=== PATIENT | male | born 1970 | race Two or more races ===

== ENCOUNTER 2023-10-21 13:03 | Inpatient (IN) | payer MEDICAID, OTHER ==
[~2023-10-21] VITALS: Ht 175.3 cm; Wt 77.5 kg
[2023-10-21 13:59] LABS: Basophils # (auto) 0.1 10 ^3/uL (0-0.2); Basophils % (auto) 0.9 % (0.0-2.0); Eosinophils # (auto) 0.1 10 ^3/uL (0-0.8); Eosinophils % (auto) 1.8 % (0.0-7.0); Hematocrit 46.6 % (41.0-53.0); Hemoglobin 16.2 g/dL (13.5-17.5); Lymphocytes # (auto) 1.4 10 ^3/uL (0.4-5.4); Lymphocytes % (auto) 25.9 % (10.0-50.0); Mean Corpuscular Hemoglobin 30.4 pg (28.0-32.0); Mean Corpuscular Hgb Conc. 34.9 g/dL (32.0-36.0); Mean Corpuscular Volume 87.2 fL (80.0-100.0); Monocytes # (auto) 0.5 10 ^3/uL (0-1.3); Monocytes % (auto) 8.6 % (0.0-12.0); Neutrophils # (auto) 3.5 10 ^3/uL (1.6-8.6); Neutrophils % (auto) 62.8 % (37.0-80.0); Nucleated Red Blood Cells % 0.1 %; Platelet Count (auto) 294 10^3/uL (140-450); Red Blood Cells 5.34 10^6/uL (4.5-5.90); Red Cell Distribution Width 13.6 % (11.8-14.3); White Blood Cell 5.5 10^3/uL (4.4-10.8)
[2023-10-21 14:00] LABS: Urine Bacteria FEW /hpf (None Seen); Urine Blood Negative /uL (Negative); Urine Clarity Clear (Clear); Urine Color Yellow (Yellow); Urine Mucus FEW (None Seen); Urine Protein, UAD TRACE (Negative); Urine Specific Gravity 1.022 (1.001-1.035); Urine Urobilinogen Normal (Negative); Urine WBC <1 /hpf (0 - 3); Urine pH 7.5 (5.0-9.0)
[2023-10-21 14:15] LABS: Alanine Aminotransferase 35 U/L (7-40); Albumin 4.9 g/dL (3.2-4.8); Alkaline Phosphatase 76 U/L (46-116); Anion Gap 6 (5-15); Aspartate Aminotransferase 34 U/L (13-40); BUN/Creatinine Ratio 9.4 (10.0-20.0); Blood Urea Nitrogen 9 mg/dL (9-23); Calcium 9.7 mg/dL (8.7-10.4); Carbon Dioxide 30 mmol/L (20-30); Chloride 101 mmol/L (98-107); Glucose 110 mg/dL (74-106); Potassium 3.8 mmol/L (3.5-5.1); Sodium 137 mmol/L (136-145); Total Protein 7.8 g/dL (5.7-8.2)
[2023-10-21] MEDS: SODIUM CHLORIDE 0.9% 1,000 ML IV ONE (16:49)
[2023-10-21 19:30] VITALS: PULSE 62; RESP 18; O2SAT 100
[2023-10-21 20:23] LABS: LDL Cholesterol 190 mg/dL (< 100); Triglycerides 87 mg/dL (< 150)
[2023-10-21 20:25] LABS: Cholesterol 242 mg/dL (< 200); HDL Cholesterol 41 mg/dL (40-59)
[2023-10-21 21:00] VITALS: BP 151/73; PULSE 56; RESP 16; TEMP 98.1; O2SAT 99
[2023-10-21] MEDS ORDERED: ACETAMINOPHEN 325 MG TAB PO PRN (21:15)
[2023-10-21] MEDS: ONDANSETRON HCL 4 MG/2 ML VIAL IV PRN (21:57)
[2023-10-21] MEDS: MORPHINE SULFATE INJ 2 MG/ml SYRG IV ONE (21:58)
[2023-10-21] MEDS: PANTOPRAZOLE 40 MG TAB PO SCH (22:00)
[2023-10-21] MEDS: metroNIDAZOLE 500 MG TAB PO SCH (22:08)
[2023-10-21] MEDS: AMOXICILLIN TRIHYDRATE 250 MG CAP PO SCH (22:08)
[2023-10-21] MEDS: LACTATED RINGER'S 1,000 ML IV SCH (22:38)
[2023-10-21 23:20] VITALS: BP 151/73; PULSE 59; RESP 17; RESP 18; TEMP 98.1; TEMP 98.5; O2SAT 98; O2SAT 99
[2023-10-21 23:30] VITALS: BP 144/70
[2023-10-22] VITALS (7 sets, daily range): BP systolic 115–128; BP diastolic 70–80; PULSE 57–79; RESP 15–18; TEMP 97.5–99.4; O2SAT 96–99
[2023-10-22] MEDS: MORPHINE SULFATE INJ 2 MG/ml SYRG IV PRN (05:33)
[2023-10-22 06:46] LABS: Alanine Aminotransferase 30 U/L (7-40); Albumin 4.3 g/dL (3.2-4.8); Alkaline Phosphatase 65 U/L (46-116); Anion Gap 5 (5-15); Aspartate Aminotransferase 30 U/L (13-40); BUN/Creatinine Ratio 10.6 (10.0-20.0); Blood Urea Nitrogen 9 mg/dL (9-23); Calcium 9.1 mg/dL (8.7-10.4); Carbon Dioxide 29 mmol/L (20-30); Chloride 104 mmol/L (98-107); Glucose 76 mg/dL (74-106); Potassium 3.7 mmol/L (3.5-5.1); Sodium 138 mmol/L (136-145)
[2023-10-22 06:47] LABS: Bilirubin, Total 1.1 mg/dL (0.2-1.0); Total Protein 6.8 g/dL (5.7-8.2)
[2023-10-22] MEDS: ENOXAPARIN SOD 40 MG/0.4 ML SYRINGE SC SCH (09:27)
[2023-10-22] MEDS: HYDROcodone-ACET 5/325MG TAB PO PRN (13:42)
[2023-10-23] VITALS (8 sets, daily range): BP systolic 116–130; BP diastolic 68–85; PULSE 57–110; RESP 15–19; TEMP 98–98.9; O2SAT 97–100
[2023-10-23] MEDS ORDERED: NALOXONE HCL 0.4 MG/ML VIAL ONE (09:15)
[2023-10-23] MEDS ORDERED: SODIUM CHLORIDE LOCK 10 ML ONE (09:15)
[2023-10-23] MEDS ORDERED: FLUMAZENIL 0.1 MG/ML INJ 10ML MDV IV ONE (09:15)
[2023-10-23] MEDS ORDERED: LIDOCAINE VISCOUS 2% 15ML UD ONE (09:16)
[2023-10-23] MEDS ORDERED: diphenhdrAMINE HCL 50 MG/1 ML VL ONE (09:16)
[2023-10-23] MEDS ORDERED: MIDAZOLAM HCL 5 MG/ML-1ML VIAL ONE (09:16)
[2023-10-23] MEDS ORDERED: fentaNYL CITRATE 100 MCG/2 ML VL ONE (09:17)
[2023-10-23] MEDS ORDERED: MIDAZOLAM HCL 2MG/2ML 2ml VIAL (1mg/ml) ONE (17:28)
[2023-10-23] MEDS ORDERED: ONDANSETRON HCL 4 MG/2 ML VIAL ONE (17:38)
[2023-10-23] MEDS ORDERED: PROPOFOL 10 MG/ML 20 ML IV ONE (17:38)
[2023-10-23] MEDS ORDERED: ONDANSETRON HCL 4 MG/2 ML VIAL IV ONE (18:00)
[2023-10-23] MEDS: SUCRALFATE 1 GM/10 ML ORAL SUSP GT SCH (22:11)
[2023-10-24 01:00] VITALS: BP_SYST 103; BP_SYST 122; BP_DIAS 63; BP_DIAS 77; PULSE 64; PULSE 77; RESP 18; RESP 20; TEMP 97.9; TEMP 98.7; O2SAT 97; O2SAT 98
[2023-10-24 05:00] VITALS: BP 103/66; PULSE 70; RESP 18; TEMP 98; O2SAT 95
[2023-10-24 08:35] VITALS: BP 110/71; PULSE 66; RESP 18; TEMP 98.4; O2SAT 100
[2023-10-24 13:00] VITALS: BP 114/75; PULSE 73; RESP 18; TEMP 98.2; O2SAT 96
[2023-10-24] MEDS ORDERED: SUCR1TAB31 PO (13:36)
[2023-10-24] MEDS ORDERED: PANT40T PO (13:36)
[2023-10-24 15:53] VITALS: TEMP 36.8
== END 2023-10-24 16:15 | disposition home or self-care (01) | DRG 282 ==
LOC: ER 13:03 → OVERFLOW 21:39 → WEST WING 21:39
PROVIDERS: ADMIT Nurse Practitioner; ATTEND Internal Medicine
PROC: 0DB68ZX Excision of Stomach, Via Natural or Artificial Opening Endoscopic, Diagnostic (ICD-10-PCS; 2023-10-23)
PROC: 0DB98ZX Excision of Duodenum, Via Natural or Artificial Opening Endoscopic, Diagnostic (ICD-10-PCS; principal; 2023-10-23 17:20)
DX: K85.90 Acute pancreatitis without necrosis or infection, unspecified (principal); K27.4 Chronic or unspecified peptic ulcer, site unspecified, with hemorrhage; K57.31 Diverticulosis of large intestine without perforation or abscess with bleeding; K29.71 Gastritis, unspecified, with bleeding; B96.81 Helicobacter pylori [H. pylori] as the cause of diseases classified elsewhere; R74.8 Abnormal levels of other serum enzymes; K59.00 Constipation, unspecified; K31.9 Disease of stomach and duodenum, unspecified
CPT/HCPCS: 36415; 74176; 76705; 80053; 80061; 81001; 83690; 85025; G0378; J2250; J2405; J2704